=== PATIENT | female | born 2005 | race Hispanic/Latino ===

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

== ENCOUNTER 2024-07-19 18:13 | Emergency (ER) | payer SELFPAY ==
--- NOTE | 2024-07-19 18:14 | ED.URI ---
HPI - URI/Sore Throat General Chief Complaint: Upper Respiratory Infection Stated Complaint: Sore throat Time Seen by Provider: 07/19/24 18:23 Source: patient, RN notes reviewed and old records reviewed Mode of arrival: ambulatory Limitations: no limitations History of Present Illness HPI Narrative: 18-year-old female presents to the [facility] with 2 day history a sore throat. States she thinks she fever. Did take DayQuil and ibuprofen when she felt feverish. No treatment today. Onset (ago): day(s) (2) Related Data Allergies Allergy/AdvReac Type Severity Reaction Status Date / Time No Known Allergies Allergy Verified 05/25/23 12:42 Review of Systems Review of Systems: All systems reviewed & are unremarkable except as noted in HPI and below Constitutional: Constitutional: Reports no additional constitutional complaints ENT: Reports as per HPI and Reports sore throat Cardiovascular: Cardiovascular: Reports no additional cardiovascular complaints, Denies chest pain and Denies dyspnea Respiratory: Respiratory: Reports no additional respiratory complaints, Denies chest congestion, Denies cough and Denies dyspnea Musculoskeletal: Musculoskeletal: Reports no additional musculoskeletal complaints Integumentary/Breasts: Skin/Breast: Reports system reviewed and no additional complaints, except as docu PMFSH Past Medical History Medical History Patient denies medical problems Surgical History Surgical History No significant past surgical history Social History Social History Smoking status: Never smoker Comments At the time of my signature, I reviewed and agree with the nursing past medical, surgical, social, and family history. There is no relevant family history pertinent to the patient complaint. Exam Const: General: cooperative, healthy appearing, comfortable, no acute distress, well developed, alert and well nourished Nutritional Appearance: well nourished Orientation/consciousness: patient oriented x3 Limitations: no limitations HENMT: Head: normal to inspection Ears: hearing grossly normal bilaterally, external ears normal, TM's normal bilaterally, EAC's normal, mastoids normal and no periauricular adenopathy Face/Nose/Sinus: Normal external nose present and Normal nasal mucous membranes and turbinates present Mouth: Yes Normal oral and palatal mucosa present, Yes lip normal, Yes tongue normal and Yes moist mucous membranes Throat: uvula midline, abnormal tonsil bilateral erythema and hypertrophy 2+; no exudates and no uvular edema Eyes: General: appearance normal, both eyes and all related structures Alignment and Position: alignment normal Neck: Neck: normal visual inspection, full ROM, no meningeal signs and lymphadenopathy (Bilateral submandibular) Chest: Chest palpation & inspection: normal inspection of the chest Resp: Effort & Inspection: normal respiratory effort and able to speak in complete sentences Auscultation: clear to auscultation bilaterally, no crackles, no rales, no rhonchi and no wheezes Cardio: Rate: regular rate Skin: General skin exam: normal color and no rashes or lesions noted Neuro: General: patient oriented x3, gait normal, moves all extremities and no meningeal signs Cognition (Neuro): normal cognition Speech: normal speech Gait exam (Neuro): Normal gait present Extrem: General: normal to inspection, full ROM, capillary refill normal and normal gait Psych: Appearance: grossly normal and well kempt Mental Status: mental status grossly normal Speech and movement: Normal speech and movement present and Clear speech present Affect: normal affect Attitude: cooperative Course Course Level of Care: Express Care Visit Vital Signs Vital signs: Vital Signs Temperature 99.7 F H 07/19/24 18:22 Pulse Rate 106 H 07/19/24 18:22 Respiratory Rate 18 07/19/24 18:22 Blood Pressure 132/90 07/19/24 18:22 Pulse Oximetry 100 07/19/24 18:22 Oxygen Delivery Room Air 07/19/24 18:22 Temperature 99.7 F H 07/19/24 18:22 Pulse Rate 106 H 07/19/24 18:22 Respiratory Rate 18 07/19/24 18:22 Blood Pressure 132/90 07/19/24 18:22 Pulse Oximetry 100 07/19/24 18:22 Oxygen Delivery Room Air 07/19/24 18:22 Reviewed MDM - URI/Sore Throat MDM Narrative Medical decision making narrative: Patient presents with 2 day history of sore throat. Patient is nontoxic, vitals are stable except pulse mildly elevated, low-grade temp. Patient is positive for strep. Will treat with amoxicillin. Patient is appropriate for outpatient treatment and follow-up Discharge instructions reviewed with patient, as well as provided in writing per nursing staff. The instructions also include specific and strict return/GO TO THE ER as well as f/u information. All questions have been answered, and the patient deny any further questions with discharge and discharge plan. Some parts of this dictation were generated by voice recognition software and may contain typographical and/or grammatical inaccuracies. Differential Diagnosis Differential diagnosis: Likely upper respiratory infection, otitis media, sinusitis, viral infection, bronchitis, influenza and pharyngitis Lab Data Labs: Lab Results 07/19/24 Range/Units 18:25 POC Grp A Strep Screen Positive (Negative) Reviewed Critical Care Time Critical Care Time Critical Care Time: No Discharge Plan Discharge Clinical Impression: Strep pharyngitis Patient Disposition: Home, Self-Care Condition: Stable Instructions: Antibiotic Form, Strep Throat (DC) Additional Instructions: After 24-48 hours on antibiotics, Throw the toothbrush away, start using a new one. Please be sure to wash bed linens especially pillow cases. Repeat once you finish the antibiotics. Do not share drinks. Take Motrin alternating with Tylenol for pain and fever alternating every 4 hours. Increase fluids, avoid caffeine. Give plenty of water, juice, Gatorade, Pedialyte, ice pops in Jell-O Follow up with Primary provider if not getting better this week For new or worsening symptoms go directly to the emergency room Patient Language: Wolof Prescriptions: New amoxicillin 500 mg tablet 500 mg PO Q12H Qty: 20 0RF No Action ketoconazole 2 % cream 1 applic topical DAILY 14 Days Qty: 30 0RF Follow-up/Referrals: PHYSICIAN,STOPPING BUILDER [Primary Care Provider] - Stand Alone Forms: Work/School Release IP Time of Disposition: 18:36
[2024-07-19 18:22] VITALS: BP 132/90; PULSE 106; RESP 18; TEMP 37.6; O2SAT 100
[2024-07-19 18:37] LABS: EDSTREPNEGPOS1 Positive (Negative)
== END 2024-07-19 18:44 | disposition home or self-care (01) ==
PROVIDERS: Emergency Provider Nurse Practitioner
DX: J02.0 Streptococcal pharyngitis (principal)
CPT/HCPCS: 87880; 99213; G0463

== ENCOUNTER 2024-09-19 08:36 | Emergency (ER) | payer MEDICAID, SELFPAY ==
--- NOTE | ~2024-09-19 | US_ITS ---
EXAMINATION: US OB <=14 wk fetus w TV DATE: 09/19/2024 11:36 INDICATION: Bleeding and lower abdominal pain during early . TECHNIQUE: Real-time pelvic ultrasound utilizing both a transvaginal and transabdominal probe was pe rformed. The interpreting radiologist was not present for the study. COMPARISON: None. FINDINGS: The uterus measures 11.3 x 6.1 x 7.6 cm. There is an intrauterine gestational sac. A yolk sac and fe eileen pole are identified. The crown rump length measures 6-7 mm, which correlates with an estimated ge stational age of 6 weeks and 4 days. There is no evident heart motion by M-mode Doppler which i s highly suspicious for demise with the crown-rump length is negligible below the 7 mm threshol d for definitive determination of demise. There is a large subchorionic hematoma the portion wh ich demonstrates a dependently layering hematocrit level in which exerts mass effect with flattening of the adjacent margin of the gestational sac. The right ovary measures 2.9 x 1.7 x 1.7 cm. 1.9 cm hypoechoic likely corpus luteum cyst in the right ovary. The left ovary measures 3.1 x 1.8 x 3.2 cm. There are a few subcentimeter anechoic follicles at both ovaries. Vascular flow identified at both ovaries on color Doppler. There is no free fluid in the pelvis. IMPRESSION: 1. Intrauterine gestational sac with single 6-7 mm pole without discernible heart motion which is highly suspicious for failure. Dr. England discussed these findings with Dr. Cobos at 12:15 PM. 2. Gestational age by ultrasound of 6 weeks 4 day(s) +/- 4 day(s) which would correspond with an ult rasound estimated date of delivery (NIEVES) of 05/11/2025. 3. Large subchorionic hematoma. Reviewed, dictated and finalized at location A. IMPRESSION: 1. Intrauterine gestational sac with single 6-7 mm pole without discernib le heart motion which is highly suspicious for failure. Dr. England discussed these findings with Dr. Cobos at 12:15 PM. 2. Gestational age by ultrasound of 6 weeks 4 day(s) +/- 4 day(s) which would correspond with an ultrasound estimated date of delivery (NIEVES) of 05/11/2025. 3. Large subchorionic hematoma.
[2024-09-19 08:42] VITALS: BP 115/55; PULSE 80; RESP 18; TEMP 36.4; O2SAT 100
[2024-09-19 08:59] VITALS: BP 132/94
[2024-09-19 09:01] VITALS: BP 106/92
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
[2024-09-19 09:16] VITALS: BP 125/94
[2024-09-19 09:29] LABS: BEDSIDEPREGUCG Positive (Negative)
[2024-09-19 09:38] VITALS: BP 125/84; PULSE 80; RESP 15; O2SAT 99
[2024-09-19 09:40] LABS: Basophils Absolute Auto 0.1 K/mm3 (0.0-0.1); Basophils Percent Auto 0.6 % (0.2-1.2); Eosinophils Absolute Auto 0.1 K/mm3 (0-0.3); Eosinophils Percent Auto 1.6 % (0-4.4); Hematocrit 38.5 % (37.0-47.0); Hemoglobin 12.9 g/dL (12.0-15.0); Immature Granulocyte Absolute 0.03 K/mm3 (0.00-0.031); Immature Granulocyte Percent A 0.4 % (0-0.5); Lymphocytes Absolute Auto 1.85 K/mm3 (0.9-3.2); Mean Corpuscular HGB Conc 33.5 g/dl (32-36); Mean Corpuscular Hemoglobin 27.6 pg (26-34); Mean Corpuscular Volume 82.3 fl (80-100); Mean Platelet Volume 9.2 fl (7.4-10.4); Monocytes Absolute Auto 0.6 K/mm3 (0.1-0.6); Monocytes Percent Auto 7.6 % (2.6-8.5); Neutrophils Absolute Auto 5.4 K/mm3 (1.3-6.7); Neutrophils Percent Auto 66.8 % (45.5-73.1); Platelet Count Result 300 k/mm3 (150-375); Red Blood Count 4.68 M/mm3 (4.2-5.4); Red Cell Distribution Width 14.6 % (11.5-14.5)
[2024-09-19 09:51] LABS: INR 0.9; Prothrombin Time 12.8 Seconds (11.1-14.7)
[2024-09-19 09:53] LABS: Partial Thromboplastin Time 27.7 Seconds (22.3-36.8)
--- OUTSIDE RECORDS SUMMARY | 2024-09-19 10:02 | XMS_ITS | Clinical Summary ---
Author Organization [facility] Address [address] [address] Care Team Providers Care Front Line Leader Name Role Phone CarylAngela contreras Rashida NEGRO-LEAD MANUFACTURING TECHNICIAN Primary Care Provider + Source Comments [facility],non-owned Affiliates and Associated Physician Practices is amultiple site organization consisting of ambulatory clinics and hospital sitesin [place], [place], [place] and [place]. This disclosure is being madepursuant to the Care Everywhere program and may not contain all information available regarding this patient. Last updated 18.[facility] Allergies No known active allergies Medications Be [...] 1:42 AM 12/22/2017 3:42 PM Care Teams Front Line Leader Relationship Specialty Start Date End Date Angela Leung, MARKY-LEAD MANUFACTURING TECHNICIAN [facility] [address] PCP - General Nurse Practitioner 12/21/17
[2024-09-19 10:13] LABS: Alanine Aminotransferase 15 U/L (6-35); Albumin Level 3.7 g/dL (3.7-5.6); Alkaline Phosphatase 46 U/L (45-116); Anion Gap 8 mmol/L (4-12); Aspartate Amino Transferase 21 U/L (14-36); Bilirubin,Total 0.7 mg/dL (0.2-1.3); Blood Urea Nitrogen 12 mg/dL (8-21); Calcium 8.7 mg/dL (8.9-10.7); Carbon Dioxide 20 mmol/L (22-30); Chloride 107 mmol/L (98-107); Estimated CRCL calculation 75 ml/min; Estimated Glomerular Filt Rate > 60; Glucose 89 mg/dL (65-110); Potassium 3.8 mmol/L (3.4-5.0); Sodium 135 mmol/L (134-143)
--- NOTE | 2024-09-19 10:17 | ED_ITS ---
HPI - General Chief complaint: Vaginal Bleeding Stated complaint: vag bleeding, + preg testx3 Time Seen by Provider: 09/19/24 09:01 Source: patient Mode of arrival: ambulatory Limitations: no limitations History of Present Illness HPI Narrative: Patient is a 18-year-old female who presents the ED with report of vaginal bleeding. Patient is currently . Last normal menstrual cycle around 08/17. Has had 3 positive tests at home. . Reports having light vaginal bleeding over the last 2-3 days. States bleeding became heavier today. Reports intermittent lower abdominal cramping. Reports nausea, vomiting. Denies difficulty urinating, dysuria. Denies fevers. Has an appointment with [facility] on 10/17. Related Data Allergies Allergy/AdvReac Type Severity Reaction Status Date / Time No Known Allergies Allergy Verified 09/19/24 08:38 Review of Systems 2 Review of Systems: All systems reviewed & are unremarkable except as noted in HPI. All systems reviewed & are unremarkable except as noted in HPI and below PMFSH Past Medical History Medical History Patient denies medical problems Surgical History Surgical History No significant past surgical history Social History Social History Smoking status: Never smoker Exam 2 Narrative: GENERAL: Well appearing, thin, non-toxic, in no acute distress. HEAD: Normocephalic, atraumatic. RESPIRATORY: Airway patent, respirations nonlabored. Clear to auscultation bilaterally, no rales, rhonchi, wheezing. CARDIOVASCULAR: Regular rate and rhythm without murmurs, rubs, or gallops. ABDOMINAL: Soft, mild diffuse tenderness in lower abdomen, no rebound, no focal tenderness, nondistended. Normoactive BS. PELVIC: Normal external genitalia. Mild amount of dark red vaginal blood in vaginal vault. No clots. Cervix appears unremarkable. No evidence of hemorrhage or pooling of fluid. MUSCULOSKELETAL: Moves all extremities. No gross deformities. SKIN: Warm, dry, normal color. NEURO: A&O X3. Speech clear PSYCHIATRIC: Appropriate mood and affect. Normal interaction. Course Vital Signs Vital signs: Vital Signs Temperature 97.6 F 09/19/24 08:42 Pulse Rate 80 09/19/24 08:42 Respiratory Rate 18 09/19/24 08:42 Blood Pressure 115/55 L 09/19/24 08:42 Pulse Oximetry 100 09/19/24 08:42 Oxygen Delivery Room Air 09/19/24 08:42 Temperature 97.6 F 09/19/24 08:42 Pulse Rate 80 09/19/24 09:38 Respiratory Rate 15 09/19/24 09:38 Blood Pressure 125/84 09/19/24 09:38 Pulse Oximetry 99 09/19/24 09:38 Oxygen Delivery Room Air 09/19/24 08:42 MDM - OB/Uterine Contractions MDM Narrative Medical decision making narrative: Patient presented to ED with vaginal bleeding, early . Vital signs are stable upon arrival. Patient is in no acute distress. Cbc is unremarkable. Stable H&H. Beta hCG 44K. Patient's blood type is A positive, no indication for RhoGAM. Pelvic ultrasound was obtained and unfortunately showing likely failure/ demise. Gestational sac present, but no heart activity. Six weeks 4 days. Large subchorionic. Pelvic exam without evidence of hemorrhage. Discussed case with Dr. Barahona OBGYMary on-call for [facility], advised to have repeat hormone level on Tuesday, follow-up in office. Call office make appointment. Discussed these recommendations with patient. She is in agreement with plan. All questions answered. Patient given strict return precautions should bleeding worsen or continue. Discharged in stable condition. Medical Records Attestation: I reviewed the patient's medical records. Lab Data Attestation: I reviewed the patient's lab results. 09/19/24 09:29 09/19/24 09:29 Labs: Lab Results 09/19/24 09/19/24 09/19/24 Range/Units 09:27 09:29 11:27 WBC 8.0 (4.5-10.0) K/mm3 RBC 4.68 (4.2-5.4) M/mm3 Hgb 12.9 (12.0-15.0) g/dL Hct 38.5 (37.0-47.0) % MCV 82.3 (80-100) fl MCH 27.6 (26-34) pg MCHC 33.5 (32-36) g/dl RDW 14.6 H (11.5-14.5) % Plt Count 300 (150-375) k/mm3 MPV 9.2 (7.4-10.4) fl Immature Gran % (Auto) 0.4 (0-0.5) % Neut % (Auto) 66.8 (45.5-73.1) % Lymph % (Auto) 23.0 (18.3-44.2) % [place] % (Auto) 7.6 (2.6-8.5) % Eos % (Auto) 1.6 (0-4.4) % Baso % (Auto) 0.6 (0.2-1.2) % Lymph # (Auto) 1.85 (0.9-3.2) K/mm3 [place] # (Auto) 0.6 (0.1-0.6) K/mm3 Eos # (Auto) 0.1 (0-0.3) K/mm3 Baso # (Auto) 0.1 (0.0-0.1) K/mm3 Abs Immat Gran (auto) 0.03 (0.00-0.031) K/mm3 Absolute Neuts (auto) 5.4 (1.3-6.7) K/mm3 Absolute Nucleated RBC 0.000 (0.0-0.012) K/mm3 Nucleated RBC % 0.0 (0.0-0.2) % PT 12.8 (11.1-14.7) Seconds INR 0.9 APTT 27.7 (22.3-36.8) Seconds Sodium 135 (134-143) mmol/L Potassium 3.8 (3.4-5.0) mmol/L Chloride 107 (98-107) mmol/L Carbon Dioxide 20 L (22-30) mmol/L Anion Gap 8 (4-12) mmol/L BUN 12 D (8-21) mg/dL Creatinine 0.82 (0.7-1.0) mg/dL Estim Creat Clear Calc 75 ml/min Estimated GFR > 60 (59 - ) Glucose 89 (65-110) mg/dL Calcium 8.7 L (8.9-10.7) mg/dL Total Bilirubin 0.7 (0.2-1.3) mg/dL AST 21 (14-36) U/L ALT 15 (6-35) U/L Alkaline Phosphatase 46 (45-116) U/L Total Protein 7.0 (6.3-8.6) g/dL Albumin 3.7 (3.7-5.6) g/dL Beta HCG, Quant 52985.00 mIU/ML Urine Color Yellow (Yellow) Urine Appearance Clear (Clear) Urine pH 6.5 (5.0-9.0) Ur Specific [place] 1.010 (1.001-1.035) Urine Protein 2+ H (Negative) mg/dL Urine Glucose (UA) Negative (Negative) mg/dL Urine Ketones Negative (Negative) mg/dL Ur Blood (Man) 3+ H (Negative) Urine Nitrate Negative (Negative) Urine Bilirubin Negative (Negative) Urine Urobilinogen 0.2 (<2.0) mg/dL Leukocyte Esterase Rfl Negative (Negative) JANNA/UL Urine RBC >100 H (0-2) /hpf Urine WBC 0-5 (0-3) /hpf Ur Squamous Epith Cells None seen (Few) /hpf Urine Bacteria None seen /hpf Urine Casts 0-2 POC Urine HCG, Qual Positive (Negative) Blood Type A Positive Antibody Screen Negative Screen Not Reportable Baby's Blood Type Not Reportable Baby's MATTHEW Not Reportable Doses of RhIg Required 0 Imaging Data Attestation: I personally reviewed and interpreted this imaging study as follows: Radiologist's impression: ITS Impressions Obstetrics Ultrasound 09/19/24 11:59 IMPRESSION: 1. Intrauterine gestational sac with single 6-7 mm pole without discernible heart motion which is highly suspicious for failure. Dr. England discussed these findings with Dr. Cobos at 12:15 PM. 2. Gestational age by ultrasound of 6 weeks 4 day(s) +/- 4 day(s) which would correspond with an ultrasound estimated date of delivery (NIEVES) of 05/11/2025. 3. Large subchorionic hematoma. Discharge Plan Discharge Clinical Impression: demise, 6 weeks gestation of Subchorionic hematoma in first trimester Qualifiers: Fetus number: single or unspecified fetus Qualified Code(s): O41.8X10 - Other specified disorders of amniotic fluid and membranes, first trimester, not applicable or unspecified Patient Disposition: Home, Self-Care Condition: Stable Instructions: Antibiotic Form, Miscarriage (ED) Additional Instructions: Your ultrasound here today was unfortunately consistent with failure. You will need to follow-up with OB in the office on Tuesday. Call the office today to make appointment for Tuesday afternoon with Dr. Barahona. You will need to have repeat laboratory testing on Tuesday morning prior to your OB appointment. Take lab order sheet with you to the outpatient lab. Continue to monitor bleeding. Return to the ED if you experience worsening or severe bleeding, severe pain, unable to keep down food or drink, fevers, feeling dizzy or lightheaded, or any other symptoms of concern. Patient Language: Cameroonian Prescriptions: No Action ketoconazole 2 % cream 1 applic topical DAILY 14 Days Qty: 30 0RF amoxicillin 500 mg tablet 500 mg PO Q12H Qty: 20 0RF amoxicillin 500 mg tablet 500 mg PO Q12H Qty: 20 0RF Other Ambulatory Orders: Beta HCG Quantitative (Routine) Timeframe: [id number] Location: Determined by Patient Ordered By: Rosey Collier Follow-up/Referrals: Suman Barahona MD [Physician] - (OBGYN) UNKNOWN,DOCTOR [Primary Care Provider] - Time of Disposition: 12:44
[2024-09-19 11:37] LABS: Add Urine Microscopic? YES; Appearance Urine Clear (Clear); Bacteria Urine None Seen /hpf; Bilirubin Urine Negative (Negative); Blood Urine 3+ (Negative); Color Urine Yellow (Yellow); Glucose Urine UA Negative (Negative); Ketones Urine Negative (Negative); Leukocyte Esterase Ur Negative LEU/UL (Negative); Nitrate Urine Negative (Negative); Non Pathogenic Casts 0-2; Protein Urine 2+ mg/dL (Negative); RBC Urine >100 /hpf (0-2); Squamous Epithelial Cell Urine None Seen /hpf (Few); Urobilinogen Urine 0.2 mg/dL (<2.0); WBC Urine 0-5 /hpf (0-3); pH Urine 6.5 (5.0-9.0)
== END 2024-09-19 13:10 | disposition home or self-care (01) ==
PROVIDERS: Emergency Provider Physician Assistant
DX: O02.1 Missed abortion (principal)
CPT/HCPCS: 36415; 76801; 76817; 80053; 81001; 81025; 84702; 85025; 85461; 85610; 85730; 86850; 86900; 86901; 99284

== ENCOUNTER 2024-09-21 17:09 | Outpatient (CLI) | payer MEDICAID, SELFPAY ==
--- OUTSIDE RECORDS SUMMARY | 2024-09-21 17:13 | XMS_ITS | Clinical Summary ---
Author Organization [facility] Address [address] [place] [address] Care Team Providers Care Circuitry Negative Inspector Name Role Phone CarylAngela contreras Rashida NEGRO-ANALYTICAL CLERK Primary Care Provider + Source Comments [facility] [employer],non-owned Affiliates and Associated Physician Practices is amultiple site organization consisting of ambulatory clinics and hospital sitesin [place], [place], [place] and [place]. This disclosure is being madepursuant to the Care Everywhere program and may not contain all information available regarding this patient. Last updated 18.[facility] [employer] Allergies No known active allergies Medications Be [...] 1:42 AM 12/22/2017 3:42 PM Care Teams Circuitry Negative Inspector Relationship Specialty Start Date End Date Angela Leung, MARKY-ANALYTICAL CLERK [facility] [address] PCP - General Nurse Practitioner 12/21/17
== END 2024-09-21 17:10 | disposition home or self-care (01) ==
LOC: ANHLAB 17:11
PROVIDERS: Visit Provider Physician Assistant
DX: O02.1 Missed abortion (principal)
CPT/HCPCS: 36415; 84702

== ENCOUNTER 2024-09-21 21:49 | Emergency (ER) | payer MEDICAID, SELFPAY ==
--- OUTSIDE RECORDS SUMMARY | 2024-09-21 21:51 | XMS_ITS | Clinical Summary ---
Author Organization [facility] Address [address] [place] [address] Care Team Providers Care Sustainability Communicator Name Role Phone CarylAngela contreras Rashida NEGRO-ADJUNCT PROFESSOR OF LAW Primary Care Provider + Source Comments [facility] [employer]non-owned Affiliates and Associated Physician Practices is amultiple site organization consisting of ambulatory clinics and hospital sitesin [place], [place] and [place]. This disclosure is being madepursuant to the Care Everywhere program and may not contain all information available regarding this patient. Last updated 18.[facility] [employer] Allergies No known active allergies Medications Be [...] 1:42 AM 12/22/2017 3:42 PM Care Teams Sustainability Communicator Relationship Specialty Start Date End Date Angela Leung, MARKY-ADJUNCT PROFESSOR OF LAW [facility] [address] PCP - General Nurse Practitioner 12/21/17
[2024-09-21 22:09] VITALS: BP 137/83; PULSE 88; RESP 15; TEMP 36.6; O2SAT 98
--- OUTSIDE RECORDS SUMMARY | 2024-09-21 23:17 | XMS_ITS | Clinical Summary ---
Author Organization [facility] Address [address] [place] [address] Care Team Providers Care Tie Sawyer Name Role Phone CarylAngela contreras Rashida NEGRO-ALARM SECURITY OR SURVEILLANCE MONITOR Primary Care Provider + Source Comments [facility] [employer],non-owned Affiliates and Associated Physician Practices is amultiple site organization consisting of ambulatory clinics and hospital sitesin [place], [place], [place] and [place]. This disclosure is being madepursuant to the Care Everywhere program and may not contain all information available regarding this patient. Last updated 18.[facility] [employer] Allergies No known active allergies Medications Be [...] 1:42 AM 12/22/2017 3:42 PM Care Teams Tie Sawyer Relationship Specialty Start Date End Date Angela Leung, MARKY-ALARM SECURITY OR SURVEILLANCE MONITOR [facility] [address] PCP - General Nurse Practitioner 12/21/17
--- NOTE | 2024-09-21 23:25 | ED_ITS ---
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 She reports she was here approximately 2 days ago and was told she was having a miscarriage. Last normal menstrual cycle was around 2/14, . Pt reports she has been passing clots and endorses heavy vaginal bleeding. She reports intermittent lower abdominal cramping. Pt endorses some nausea and vomiting. She denies urinary symptoms, dysuria, recent fevers. Pt denies any relevant medical history. Related Data Allergies Allergy/AdvReac Type Severity Reaction Status Date / Time No Known Allergies Allergy Verified 09/19/24 08:38 Review of Systems 2 Review of Systems: All systems reviewed & are unremarkable except as noted in HPI and below PMFSH Past Medical History Medical History Patient denies medical problems Surgical History Surgical History No significant past surgical history Social History Social History Smoking status: Never smoker Exam 2 Narrative: GENERAL: Well appearing, well-nourished, non-toxic, in no acute distress. HEAD: Normocephalic, atraumatic. NECK: Supple. No adenopathy, no masses. RESPIRATORY: Airway patent, respirations nonlabored. Clear to auscultation bilaterally, no rales, rhonchi, wheezing. CARDIOVASCULAR: Regular rate and rhythm without murmurs, rubs, or gallops. Peripheral pulses 2+ and equal bilaterally. ABDOMINAL: Soft, nontender, nondistended, no hepatosplenomegaly. Normoactive BS. MUSCULOSKELETAL: Moves all extremities. Strength/ROM intact without gross deformities. SKIN: Warm, dry, normal color. No rashes. NEURO: A&O X3. Speech clear. Cranial nerves II-XII intact. No ataxic movements. PSYCHIATRIC: Appropriate mood and affect. Normal interaction. : Pt's vaginal exam showed a substantial amount of pooling, dark red blood in the vaginal canal accompanied by multiple clots (largest measuring approximately half dollar-sized). Course Vital Signs Vital signs: Vital Signs Temperature 36.6 C 09/21/24 22:09 Pulse Rate 88 09/21/24 22:09 Respiratory Rate 15 09/21/24 22:09 Blood Pressure 137/83 09/21/24 22:09 Pulse Oximetry 98 09/21/24 22:09 Oxygen Delivery Room Air 09/21/24 22:09 Temperature 36.6 C 09/21/24 22:09 Pulse Rate 88 09/22/24 01:42 Respiratory Rate 14 09/22/24 01:42 Blood Pressure 124/91 H 09/22/24 01:42 Pulse Oximetry 100 09/22/24 01:42 Oxygen Delivery Room Air 09/21/24 22:09 MDM - OB/Uterine Contractions MDM Narrative Medical decision making narrative: Patient is a 18-year-old female who presents to the ER with complaints increased vaginal bleeding. She reports she was here approximately 2 days ago and was told she was having a miscarriage. Last normal menstrual cycle was around 08/17, . Pt reports she has been passing clots and endorses heavy vaginal bleeding. She reports intermittent lower abdominal cramping. Pt endorses some nausea and vomiting. She denies urinary symptoms, dysuria, recent fevers. Pt denies any relevant medical history. Labs Ordered: CBC, CMP, UA, hCG Imaging Ordered: None necessary Medications Ordered: Cytotec, Toradol IV, 1 L normal saline IV bolus, morphine 2 mg IV Diagnosis: Spontaneous , heavy vaginal bleeding Consults: 0115-spoke with Dr. Barahona (OBGYN) who advised patient be given Cytotec 1000 mg intravaginal. He advised patient could be sent home following administration. Patient Education/Shared MDM: Pt's vaginal exam showed a substantial amount of dark red blood in the vaginal canal accompanied by multiple clots (largest measuring approximately half dollar-sized). Results shared with patient. She endorses pain improvement following medication administration. Patient strongly advised to maintain hydration status upon discharge and follow-up with her PCP as soon as possible. She will be discharged home with a prescription for Ibuprofen and [place]. Strict return precautions provided. Patient verbalized understanding is in agreement with plan. Vital signs stable at time of discharge. All questions answered. Differential Diagnosis Differential diagnosis: Likely other (spontaneous , heavy vaginal bleeding, UTI, excessive vaginal blood loss) Lab Data Attestation: I reviewed the patient's lab results. 09/21/24 23:59 09/21/24 23:59 Labs: Lab Results 09/21/24 Range/Units 23:59 WBC 11.3 H (4.5-10.0) K/mm3 RBC 4.01 L (4.2-5.4) M/mm3 Hgb 11.0 L (12.0-15.0) g/dL Hct 33.3 L (37.0-47.0) % MCV 83.0 (80-100) fl MCH 27.4 (26-34) pg MCHC 33.0 (32-36) g/dl RDW 14.4 (11.5-14.5) % Plt Count 296 (150-375) k/mm3 MPV 9.6 (7.4-10.4) fl Immature Gran % (Auto) 0.4 (0-0.5) % Neut % (Auto) 77.9 H (45.5-73.1) % Lymph % (Auto) 11.5 L (18.3-44.2) % [place] % (Auto) 9.0 H (2.6-8.5) % Eos % (Auto) 0.6 (0-4.4) % Baso % (Auto) 0.6 (0.2-1.2) % Lymph # (Auto) 1.29 (0.9-3.2) K/mm3 [place] # (Auto) 1.0 H (0.1-0.6) K/mm3 Eos # (Auto) 0.1 (0-0.3) K/mm3 Baso # (Auto) 0.1 (0.0-0.1) K/mm3 Abs Immat Gran (auto) 0.05 H (0.00-0.031) K/mm3 Absolute Neuts (auto) 8.8 H (1.3-6.7) K/mm3 Absolute Nucleated RBC 0.000 (0.0-0.012) K/mm3 Nucleated RBC % 0.0 (0.0-0.2) % Sodium 136 (134-143) mmol/L Potassium 3.5 (3.4-5.0) mmol/L Chloride 107 (98-107) mmol/L Carbon Dioxide 21 L (22-30) mmol/L Anion Gap 8 (4-12) mmol/L BUN 15 (8-21) mg/dL Creatinine 0.87 (0.7-1.0) mg/dL Estim Creat Clear Calc 72 ml/min Estimated GFR > 60 (59 - ) Glucose 107 (65-110) mg/dL Calcium 8.7 L (8.9-10.7) mg/dL Total Bilirubin 0.4 (0.2-1.3) mg/dL AST 21 (14-36) U/L ALT 13 (6-35) U/L Alkaline Phosphatase 51 (45-116) U/L Total Protein 7.0 (6.3-8.6) g/dL Albumin 3.7 (3.7-5.6) g/dL Beta HCG, Quant 6415.00 mIU/ML Urine Color Yellow (Yellow) Urine Appearance Clear (Clear) Urine pH 5.5 (5.0-9.0) Ur Specific [place] 1.018 (1.001-1.035) Urine Protein 3+ H (Negative) mg/dL Urine Glucose (UA) Negative (Negative) mg/dL Urine Ketones Trace H (Negative) mg/dL Ur Blood (Man) 3+ H (Negative) Urine Nitrate Negative (Negative) Urine Bilirubin Negative (Negative) Urine Urobilinogen 0.2 (<2.0) mg/dL Leukocyte Esterase Rfl Negative (Negative) JANNA/UL Urine RBC >100 H (0-2) /hpf Urine WBC 0-5 (0-3) /hpf Ur Squamous Epith Cells None seen (Few) /hpf Urine Bacteria None seen /hpf Urine Casts 3-5 Discharge Plan Discharge Clinical Impression: Spontaneous at 8 to 28 weeks gestation, Abnormal vaginal bleeding Patient Disposition: Home, Self-Care Condition: Stable Instructions: Antibiotic Form, Miscarriage (ED) Additional Instructions: Please return to the ER with any worsening symptoms. Follow-up with OBGYN as soon as possible. Take all medications as prescribed. Patient Language: Danish Prescriptions: New ibuprofen 800 mg tablet 800 mg PO TID PRN (Reason: pain) Qty: 20 0RF hydrocodone-acetaminophen 5-325 mg tablet 1 tablet PO Q6H PRN (Reason: pain) Qty: 5 0RF No Action ketoconazole 2 % cream 1 applic topical DAILY 14 Days Qty: 30 0RF amoxicillin 500 mg tablet 500 mg PO Q12H Qty: 20 0RF amoxicillin 500 mg tablet 500 mg PO Q12H Qty: 20 0RF Follow-up/Referrals: UNKNOWN,DOCTOR [Primary Care Provider] - Stand Alone Forms: Work/School Release IP Time of Disposition: 02:08
[2024-09-22 00:14] LABS: Basophils Absolute Auto 0.1 K/mm3 (0.0-0.1); Basophils Percent Auto 0.6 % (0.2-1.2); Eosinophils Absolute Auto 0.1 K/mm3 (0-0.3); Eosinophils Percent Auto 0.6 % (0-4.4); Hematocrit 33.3 % (37.0-47.0); Immature Granulocyte Absolute 0.05 K/mm3 (0.00-0.031); Immature Granulocyte Percent A 0.4 % (0-0.5); Lymphocytes Absolute Auto 1.29 K/mm3 (0.9-3.2); Lymphocytes Percent Auto 11.5 % (18.3-44.2); Mean Corpuscular Hemoglobin 27.4 pg (26-34); Mean Platelet Volume 9.6 fl (7.4-10.4); Neutrophils Absolute Auto 8.8 K/mm3 (1.3-6.7); Neutrophils Percent Auto 77.9 % (45.5-73.1); Platelet Count Result 296 k/mm3 (150-375); Red Blood Count 4.01 M/mm3 (4.2-5.4); Red Cell Distribution Width 14.4 % (11.5-14.5); White Blood Count 11.3 K/mm3 (4.5-10.0)
[2024-09-22 00:18] LABS: Alanine Aminotransferase 13 U/L (6-35); Albumin Level 3.7 g/dL (3.7-5.6); Alkaline Phosphatase 51 U/L (45-116); Anion Gap 8 mmol/L (4-12); Aspartate Amino Transferase 21 U/L (14-36); Bilirubin,Total 0.4 mg/dL (0.2-1.3); Blood Urea Nitrogen 15 mg/dL (8-21); Calcium 8.7 mg/dL (8.9-10.7); Carbon Dioxide 21 mmol/L (22-30); Chloride 107 mmol/L (98-107); Estimated CRCL calculation 72 ml/min; Estimated Glomerular Filt Rate > 60; Glucose 107 mg/dL (65-110); Potassium 3.5 mmol/L (3.4-5.0); Sodium 136 mmol/L (134-143)
[2024-09-22 00:19] LABS: Add Urine Microscopic? YES; Appearance Urine Clear (Clear); Bacteria Urine None Seen /hpf; Bilirubin Urine Negative (Negative); Blood Urine 3+ (Negative); Color Urine Yellow (Yellow); Glucose Urine UA Negative (Negative); Ketones Urine Trace mg/dL (Negative); Leukocyte Esterase Ur Negative LEU/UL (Negative); Nitrate Urine Negative (Negative); Protein Urine 3+ mg/dL (Negative); RBC Urine >100 /hpf (0-2); Specific Grav Ur 1.018 (1.001-1.035); Squamous Epithelial Cell Urine None Seen /hpf (Few); Urobilinogen Urine 0.2 mg/dL (<2.0); WBC Urine 0-5 /hpf (0-3); pH Urine 5.5 (5.0-9.0)
[2024-09-22] MEDS: SODIUM CHLORIDE 0.9% IV 1,000 ML 999 ML IV CONT (00:35)
[2024-09-22] MEDS: MORPHINE SULFATE (*CRX) 2 MG/ML INJ IV PUSH (00:36)
[2024-09-22] MEDS: KETOROLAC 15 MG/ML VIAL (*BKC) IV PUSH (00:36)
[2024-09-22 01:42] VITALS: BP 124/91; PULSE 88; RESP 14; O2SAT 100
[2024-09-22] MEDS: miSOPROStol 200 MCG TABLET 1000 MCG VAGINAL (01:42)
[2024-09-22] MEDS: HYDROcodone/acetaminophen (*CRX) 5-325 MG TABLET 1 TAB PO (02:22)
== END 2024-09-22 02:28 | disposition home or self-care (01) ==
PROVIDERS: Emergency Provider Registered Nurse
DX: O03.9 Complete or unspecified spontaneous abortion without complication (principal)
CPT/HCPCS: 36415; 80053; 81001; 84702; 85025; 96361; 96374; 96375; 99284; A9270; J1885; J2270; J7030

== ENCOUNTER 2024-10-02 02:24 | Day surgery (SDC) | payer MEDICAID, SELFPAY ==
[2024-09-28 13:26] VITALS: BMI 20.9
--- NOTE | 2024-09-28 13:27 | PC.NURSE ---
Report to the Outpatient Waiting Room, entrance under the green pavilion located off [facility], at time _1030_ on date _[id number]_. Planned Procedure Time: _1230_.? Time changes happen often and if your time is changed the preop area will call you the afternoon before. - You and your visitor will be asked to self-screen and do not enter if you have any COVID symptoms. Please call surgeon if you need to reschedule. - A mask is optional within the hospital at this time. Patients may have clear liquids (water, carbonated beverages, clear teas, apple juice) until 3 hours prior to surgery with a maximum of 20 ounces. - No food from midnight until time of surgery and no smoking, or chewing tobacco (or any form of nicotine). No chewing gum, candy or mints. Take only the following medications with a SIP of water on the morning of surgery: __Hydrocodone if needed.____ DO NOT STOP ANY OF YOUR OTHER PRESCRIPTION MEDICATIONS PRIOR TO SURGERY EXCEPT THE FOLLOWING Hold all vitamins and supplements for 3 days per anesthesiologist. Medications to discontinue per physician ___Please check with Dr Barahona if need to hold Ibuprofen.____ Date to take last dose Please no make-up, nail jamaican, hairspray, perfume, deodorant, or body powder the day of surgery.? No jewelry (including any body piercings) or valuables the day of surgery, leave them at home.? Please take a shower or bath the night before, or the morning of, surgery with an antibacterial soap.? Wear comfortable, loose fitting clothing.? - Jewelry must be removed prior to entering the operating room.? Rings and piercings that are not removed may be cut off. - The hospital will not accept responsibility for valuables.? - Please leave all valuables, including medications, at home the day of surgery. If you are going home after surgery, a licensed six horse hitch driver must drive you home.? - NO public transportation without another adult if you receive anesthesia. - We recommend that an adult stay with you for 24 hours following discharge. - We also recommend that you do not drive, make important decision, drink alcoholic beverages, or take any drugs that were not prescribed by your health care provider for at least 24 hours after your discharge time. Follow any additional instructions given to you from your surgeon. Telephone instructions given to __Whitney__and asked if any additional questions and then verbalized understanding. Patient advised to call surgeon office or pre surgery nurse liaison [phone] if any additional questions.
--- OUTSIDE RECORDS SUMMARY | 2024-10-02 02:29 | XMS_ITS | Clinical Summary ---
Author Organization [facility] Address [address] [place] [address] Care Team Providers Care Paint Factory Worker Name Role Phone XochitlErmiasmara Field APRN-BUSINESS SYSTEM CONSULTANT Primary Care Provider + Source Comments [facility] [employer],non-owned Affiliates and Associated Physician Practices is amultiple site organization consisting of ambulatory clinics and hospital sitesin [place], [place], [place] and [place]. This disclosure is being madepursuant to the Care Everywhere program and may not contain all information available regarding this patient. Last updated 18.[facility] [employer] Allergies No known active allergies Medications Be [...] 1:42 AM 12/22/2017 3:42 PM Care Teams Paint Factory Worker Relationship Specialty Start Date End Date Angela Leung, MARKY-BUSINESS SYSTEM CONSULTANT [facility] [address] PCP - General Nurse Practitioner 12/21/17
--- OUTSIDE RECORDS SUMMARY | 2024-10-02 02:29 | XMS_ITS | Data Portability ---
Author Organization [facility] Address [address] [place] [place] [address] Assessment No assessment recorded. Plan of Treatment Reminders Order Date Submit Date Provider Last Modified By Organization Details Last Modified Time Details Appointments SURG Suction D&C 2024 12:30P M Rufino PALMA MD Not available Not available Not available U/S OB SNEAK PEAK 2024 10:00A M ULTRASOUND Not available Not available Not available OB SCREEN 2024 10:45A M FANNY HINOJOSA MD Not available Not available Not available Lab pregnan cy test, urine 2024 025 [facility], [address], [place], [address], 09/28/2024 11:06:25 pregnan cy test, urine 2024 025 [facility], [address], [place], [address], 09/21/2024 17:16:33 Referral None recorde d. Procedures None recorde d. Surgeries suction dilatio n & curetta ge (SURG) 2024 025 [facility] [facility], [facility] [facility] [address], [place], [address], 10/01/2024 15:23:04 Imaging US, obstetr ic, transva ginal 2024 025 [email or web address] [facility], [address], [place], [address], 09/28/2024 21:06:13 US, obstetr ic, transva ginal 2024 025 [email or web address], [address], [address], [place], [address], 09/22/2024 12:14:32 Medication Orders None recorde d. Patient TargetsNo targets recorded. Patient InstructionsNo instructions recorded. Reason for Referral None Reported. Results Created Date Observation Date Name Description Value Unit Range Abnormal Flag Note LastModifiedBy Organization Detail LastModifiedTime 09/22/1909/21/2024 pregn racquel test, urine HCG positi ve Not Available [facility] [address], [place], [address], 09/21/2024 17:16:19 09/29/19 25 09/28/2024 pregn racquel test, urine HCG positi ve Not Available [facility] [address], [place], [address], 09/28/2024 11:06:01 09/22/19 25 09/21/2024 US, obste tric, 1st trime ster No observ ation record ed. [email or web address] [facility], [place], [address], 09/23/2024 22:13:13 09/22/19 25 09/21/2024 US, obste tric, trans vagin al No observ ation record ed. [facility] [address], [place], [address], 09/21/2024 18:17:30 09/29/19 25 09/28/2024 US, obste tric, trans vagin al No observ ation record ed. [facility] [address], [place], [address], 09/28/2024 17:20:08 09/29/1909/28/2024 US, obste tric, trans vagin al No observ ation record ed. [email or web address], [place], [address], 09/30/2024 22:59:27 Result Notes None recorded. Procedures Surgical History None recorded. Imaging Results Imaging Date Name Status LastModified by Organization Details LastModified Time 09/21/2024 US, obstetric, 1st trimester completed [email or web address], [place], [address], 09/23/2024 22:13:13 09/21/2024 US, obstetric, transvaginal completed [place] [address], [place], [address], 09/21/2024 18:17:30 09/28/2024 US, obstetric, transvaginal completed [facility] [address], [place], [address], 09/28/2024 17:20:08 09/28/2024 US, obstetric, transvaginal completed [email or web address], [place], [address], 09/30/2024 22:59:27 Procedure Notes None recorded. Medical Equipment None Reported. Allergies No known drug allergies Medications Name Sig Start Date Stop Date Status Note LastModified by Organization Details LastModified Time ibuprofen 800 mg tablet TAKE 1 TABLET BY MOUTH THREE TIMES DAILY NEEDED FOR PAIN active Not Available Not Available No t Available hydrocodone 5 mg-acetaminop hen 325 mg tablet TAKE 1 TABLET BY MOUTH EVERY 6 HOURS NEEDED active Not Available Not Available No t Available Vitals Date Recorded Body height Body mass index (BMI) Percentile per age and sex Body mass index (BMI) Body weight Systolic blood pressure Diastolic blood pressure Provider Name and Address Organization Details Last Updated DateTime 157.48 cm 40 % 20.9 kg/m2 46351.5 3 g 127 mm[Hg] 86 mm[Hg] Tenisha [place] - [facility] 15:11:13 Date Recorded Body height Body mass index (BMI) Percentile per age and sex Body mass index (BMI) Body weight Systolic blood pressure Diastolic blood pressure Provider Name and Address Organization Details Last Updated DateTime 5 157.48 cm 35 % 20.5 kg/m2 85831.3 5 g 122 mm[Hg] 84 mm[Hg] Tenisha [place] [facility] 5 10:16:32 Social History Question Answer Notes LastModified by Organizat ion Details LastModified Time Tobacco Smoking Status Never Smoker Tenisha [place] [facility] 09/21/2024 15:12:48 What Is Your Level Of Alcohol Consumption? None Information not available 09/21/2024 Are You Blind Or Do You Have Difficulty Seeing? No Information n ot available 09/21/2024 What Is Your Level Of Caffeine Consumption? Occasional Information not available 09/21/2024 In The 14 Days Before Symptom Onset, Have You Had Close Contact With A Laboratory-confirm ed COVID-19 While That Case Was Ill? No Information n ot available 09/21/2024 In The 14 Days Before Symptom Onset, Have You Had Close Contact With A Person Who Is Under Investigation For COVID-19 While That Person Was Ill? No Information not available 09/21/2024 Have You Been To An Area Known To Be High Risk For COVID-19? No Information not available 09/21/2024 Are You Currently Employed? Yes Information not available 09/21/2024 Are You Deaf Or Do You Have Serious Difficulty Hearing? No Information not available 09/21/2024 What Is The Highest Grade Or Level Of School You Have Completed Or The Highest Degree You Have Received? [id number] Information not available 09/21/2024 Are There Any Guns Present In Your Home? No Information not available 09/21/2024 Do You Use Your Seat Belt Or Car Seat Routinely? Yes Information not available 09/21/2024 Are You Sexually Active? Yes Information not available 09/21/2024 Do You Have Smoke And Carbon Monoxide Detectors In Your Home? Yes Information not available 09/21/2024 Do You Feel Stressed (tense, Restless, Nervous, Or Anxious, Or Unable To Sleep At Night)? [id number] Information not available 09/21/2024 Do You Use Any Illicit Or Recreational Drugs? No Information not available 09/21/2024 Sex: Unknown Functional Status Question Answer Note LastModified by Organizat ion Details LastModified Time Do you have difficulty walking or climbing stairs? No Information not available 09/21/2024 Are you able to walk? YESWOREST Information not available 09/21/2024 Are you able to care for yourself? Yes Information not available 09/21/2024 Do you have difficulty dressing or bathing? No Information not available 09/21/2024 Mental Status None recorded. Family History Relationship Description Onset Age of this Age Resolved Age Notes LastModified by Organization Details LastModified Time Father No current problems or disability Not available 09/21 15:12:39 Mother No current problems or disability Not available 09/21 15:12:39 Medical History Condition Response Allergies (Food, seasonal, environmental ) N Other N Drug/Latex Allergies/Reactions N Breast Cancer N Blood Transfusion N Dermatologic Disorders N Lung Disease N Defects or Inherited Disease N Breast Problem N Gestational Diabetes N Hematologic disorders N Anesthesia Complications N History of STI N Deep Vein Thrombosis N Polycystic ovary syndrome N Anxiety Disorder N Autoimmune disease N Arthritis N Infertility N Polyps N Acid Reflux (GERD) N History of abnormal pap N Cancer N Stroke N Varicosities N Neurologic/Epilepsy N Endometriosis N High Cholesterol N Fibromyalgia N Headaches N Kidney Disease N Heart Problems N Thyroid Problems N Kidney or Bladder Problems N GI Problems N Eating Disorder N Anemia N Art (IVF or FET) N Psychiatric Illness N Ovarian Cancer N Diabetes N Pulmonary (TB, Asthma) N Hepatitis/Liver Disease N No Past Medical History Y Eczema N Urinary Tract Infection N Abuse/Domestic Violence N Asthma N Trauma/Violence N Depression/ depression N Heart Disease N Pre-Eclampsia N Hypertension N Osteoporosis N Thrombophilias N Gynecological History Statement/Question Response Abnormal Pap N Flow Moderate Date of LMP 08/16/2024 Was last menstrual period normal Y STIs/STDs N HPV Vaccine N Duration of Flow (days) 7 Current Control Method Are cycles usually normal Y Frequency of Cycle (Q days) 28 Sexually Active? Y Menses Monthly Y Sexual Problems? N LMP Definite Obstetrics History GPAL:G 1 P 0 0 1 0 Type Value Spontaneous 1 Total 1 Past Encounters Encounter ID Performer Location Encounter Start Date Encounter Closed Date Diagnosis/Indication Diagnosis SNOMED-CT Code Diagnosis ICD10 Code Diagnosis Note [id number] Suman Palma MD [facility] [address] [address] 09/21/2024 14:42:35 09/25/2024 09:27:05 Missed miscarriage [id number] O02.1 . this patient is a 18-year-ol d female with threatened miscarriag e. She was in the emergency department recently. The findings were inconclusi ve but suspicious for missed miscarriag e. She has had intermitte nt heavy bleeding. Today we performed an examinatio n. There was minimal bleeding. Ultrasound was performed. It was suggestive of missed miscarriag e. She is going to complete her serial HCGs today. I spent over 30 minutes on the patient's care in total. Including ultrasound interpreta tion, laboratory interpreta tion, discussion of miscarriag e. Talked about treatment of miscarriag e. Developed a plan going forward to complete her evaluation in 2 share results. Patient will follow-up next week. [id number] [facility] [address] [address] 09/21/2024 16:43:37 09/25/2024 09:30:51 Threatened miscarriage [id number] O20.0 Z3A.01 [id number] [facility] [address] [address] 09/28/2024 10:05:31 09/28/2024 12:01:46 Missed miscarriage [id number] O02.1 This patient is a 18 year old female with retained products conception . We have agreed to perform suction D&C. She understand s risks, benefits, and alternativ es. She has completed the informed consent process and is ready to proceed. We spent over 30 minutes face-to-fa ce today. She had an in office ultrasound today. We interprete d those results. I showed her images. [id number] [facility] [address] [address] 09/28/2024 10:45:33 09/28/2024 11:13:11 Missed miscarriage [id number] O02.1 Z3A.01 . this patient is a 18-year-ol d female with threatened miscarriag e. She was in the emergency department recently. The findings were inconclusi ve but suspicious for missed miscarriag e. She has had intermitte nt heavy bleeding. Today we performed an examinatio n. There was minimal bleeding. Ultrasound was performed. It was suggestive of missed miscarriag e. She is going to complete her serial HCGs today. I spent over 30 minutes on the patient's care in total. Including ultrasound interpreta tion, laboratory interpreta tion, discussion of miscarriag e. Talked about treatment of miscarriag e. Developed a plan going forward to complete her evaluation in 2 share results. Patient will follow-up next week. Health Concerns Section Related Observation LastModified by Organization Detai ls LastModified Time None Recorded Concern Status LastModified by Organization Details LastModified Time None Recorded Advance Directives Directive None Recorded Payers Encounter Date Sequence Insurance Name Policy Number Policy Rios Covered Member ID Rios Member ID Guarantor Name 09/21/2024 1 [place] [facility] [place] [facility] [employer] Whitney Pantoja [id number] Whitney Pantoja 09/21/2024 1 [place] [facility] [place] [facility] [employer] Whitney Pantoja [id number] Whitney Pantoja 09/28/2024 1 [place] [facility] [place] [facility] [employer] Whitney Pantoja [id number] Whitney Pantoja 09/28/2024 1 [place] [facility] [place] [facility] Whitney Pantoja [id number] Whitney Pantoja Notes Date Note Type Note Provider Name and Address Organization Details Recorded Time 09/21/2024 text/html . this patient i s a 18-year-old female with threatened miscarriage. She was in the emergency department recently. The findings were inconclusive but suspicious for missed miscarriage. She has had intermittent heavy bleeding. Today we performed an examination. There was minimal bleeding. Ultrasound was performed. It was suggestive of missed miscarriage. She is going to complete her serial HCGs today. I spent over 30 minutes on the patient's care in total. Including ultrasound interpretation, laboratory interpretation, discussion of miscarriage. Talked about treatment of miscarriage. Developed a plan going forward to complete her evaluation in 2 share results. Patient will follow-up next week. Suman Palma MD [address], [place], [address], [facility] 09/21/2024 17:59:58 09/28/2024 text/html patient is a 18-year-old female with retained products conception. We agreed to perform suction D&C. The patient understands the procedure. The procedure was described to the patient in great detail. the patient also understands the risks. The risks were also explained in detail. She understands that injuries May occur during surgery. She understands these injuries can result in hospitalization, more surgery, and severe illness. She understands there is risk of hemorrhage and infection. Suman Palma MD [address], [place], [address], [facility] 09/28/2024 11:57:48 OBGyn Episode Ob Episode Information Episode Created Date Number of Fetuses Patient Bloodtype Patient rh Status Prepregnancy Weight lbs Domestic Partner Domestic Partner Phone Father Name Site Foreman Status 09/29/19 25 1 CLOSED Fetus Data First Name Last Name Admitted to NICU Weight (g) Sex Living Outcome Pediatric Complications Fetus ID Race Codes Race Delivery Type , Spontane ous [id number] Zhang Calculation Initial Zhang Date Initial Exam Date Initial Exam Provider Initial Ultrasound Date Last Menstrual Period Date Ultra Sound Weeks Gestation 0 Eighteen To Twenty Week Zhang Update Ultra Sound Date Fundal Height At Umbil Quickening Date Ultra Sound Latest Weeks Gestation Final Zhang Confirmed By Final Zhang Confirmed Date Final Zhang Date Ultra Sound Latest Days Gestation 0 0 Menstrual History Last Menstrual Date Menses Monthly On Bcp Conception Prior Menses Frequency Hcg Plus Date Menarche Onset Age Delivery Information Delivery Date Delivery Type Labor Anesthesia Weeks Gestation Incision Type Labor Labor Length Hrs Delivered By Post Complications Tubal Sterilization Discharge Date Comments 5 Discharge Information Feeding Method Contraceptive Method Maternal HG B and HCT Levels
[2024-10-02 10:50] VITALS: BP 109/61; PULSE 68; RESP 14; TEMP 36.7; O2SAT 100
[2024-10-02] MEDS: ACETAMINOPHEN 500 MG TABLET 1000 MG PO (10:50)
[2024-10-02] MEDS: LACTATED RINGERS 1,000 ML 30 ML IV CONT (10:50)
--- NOTE | 2024-10-02 11:50 | WPDHPUPDATE1 ---
History and Physical Update Update Date/Time: 10/02/24 11:50 History and Physical has been reviewed, including an updated exam of the patient. There are NO changes in the patient's condition. Risks, benefits, and alternatives have been discussed and questions answered. Patient agrees to proceed with procedure.
--- NOTE | 2024-10-02 11:51 | PM.IMHP ---
H&P: HPI History of Present Illness Date/Time: 10/02/24 11:51 Chief Complaint: incomplete miscarriage, vaginal bleeding Narrative: This patient is a 18-year-old female who has a incomplete miscarriage. We have agreed to perform suction D&C. She understands risks, benefits, and alternatives. She has completed informed consent process and is ready to proceed. The patient understands the details of the procedure. The procedure has been explained in detail. She understands the risks. She understands that injuries may occur that result in hospitalization, more surgery, and severe illness. She understands risk of hemorrhage and infection. She denies any chest pain or shortness of breath. She denies any nausea, vomiting, fever, chills. Review of Systems Review of Systems: All systems reviewed & are unremarkable except as noted in HPI and below Constitutional: Constitutional: Denies chills, Denies fatigue, Denies fever(s) and Denies weakness Eyes: Eyes: Denies blurry vision, Denies change in vision, Denies loss of peripheral vision, Denies loss of vision, Denies other visual disturbances and Denies eye pain ENT: Denies vertigo, Denies dizziness, Denies hearing loss, Denies mouth pain, Denies nasal obstruction, Denies neck mass and Denies neck pain Cardiovascular: Cardiovascular: Denies chest pain, Denies diaphoresis, Denies syncope, Denies leg edema and Denies dyspnea Respiratory: Respiratory: Denies chest congestion, Denies cough, Denies hemoptysis, Denies dyspnea and Denies wheezing Gastrointestinal: Gastrointestinal: Denies abdominal pain, Denies constipation, Denies diarrhea, Denies nausea and Denies vomiting Genitourinary: Genitourinary: Denies hematuria, Denies change in libido, Denies nocturia, Denies genital lesions, Denies flank pain and Denies urinary urgency Musculoskeletal: Musculoskeletal: Denies abnormal gait, Denies back pain, Denies myalgias, Denies arthralgias, Denies joint swelling, Denies muscle weakness and Denies neck pain Integumentary/Breasts: Skin/Breast: Denies swelling, Denies breast pain, Denies breast mass, Denies dry skin, Denies nipple discharge, Denies unusual bruising and Denies jaundice Neurologic: Denies Neuro-related abnormal movements, Denies Abnormal speech present, Denies abnormal gait, Denies behavioral changes, Denies confusion, Denies vertigo, Denies dizziness, Denies syncope, Denies loss of vision, Denies memory loss, Denies convulsions and Denies weakness Psychiatric: Psychiatric: Denies abnormal sleep pattern, Denies behavioral changes, Denies change in libido, Denies confusion, Denies depression, Denies anhedonia and Denies memory loss Endocrine: Endocrine: Reports no additional endocrine complaints, Denies change in libido and Denies fatigue Hematologic/Lymphatic: Hematologic/Lymphatic: Reports no additional hematologic/lymphatic complaints Allergic/Immunologic: Allergic/Immunologic: Reports no additional allergic/immunologic complaints and Denies wheezing PMFSH Past Medical History Medical History Patient denies medical problems Surgical History Surgical History No significant past surgical history Social History Social History Smoking status: Never smoker Spiritual care concerns: No Meds Home Medications and Allergies Home Medications ?Medication ?Instructions ?Recorded ?Confirmed ?Type hydrocodone 5 mg-acetaminophen 325 1 tablet PO Q6H PRN pain #5 tabs 09/22/24 09/28/24 Rx mg tablet ibuprofen 800 mg tablet 800 mg PO TID PRN pain #20 tabs 09/22/24 09/28/24 Rx Allergies Allergy/AdvReac Type Severity Reaction Status Date / Time No Known Allergies Allergy Verified 10/02/24 11:46 Vital Signs Vital Signs - 24 hr 10/02/24 10:50 Temperature 98.1 F Pulse Rate 68 Respiratory Rate 14 Blood Pressure 109/61 Pulse Oximetry 100 Oxygen Delivery Room Air Exam Const: General: cooperative, healthy appearing, comfortable and no acute distress Orientation/consciousness: oriented to person, oriented to place and oriented to time HENMT: Head: normal to inspection Ears: external ears normal Face/Nose/Sinus: Normal external nose present and normal facial exam Face and sinus: normal facial exam Eyes: General: appearance normal, both eyes and all related structures Neck: Neck: normal visual inspection, trachea midline and supple Resp: Auscultation: clear to auscultation bilaterally, no crackles, no rales, no rhonchi and no wheezes Cardio: Rate: regular rate Rhythm: regular rhythm Heart sounds: no click, no murmurs and no rubs GI: GI Palp: No abdominal tenderness, No Soft to palpation, No Tenderness to palpation present (GI) and No Palpable mass present Auscultation: normal bowel sounds Skin: General skin exam: normal color and no rashes or lesions noted Neuro: General: oriented to person, oriented to place and oriented to time Extrem: General: normal to inspection, no joint enlargement, no clubbing, cyanosis or edema, no pedal edema and no calf tenderness Psych: Appearance: grossly normal Mental Status: mental status grossly normal Speech and movement: Normal speech and movement present Assessment and Plan Assessment and plan (1) Incomplete : Code(s): O03.4 - Incomplete spontaneous without complication Status: Acute Assessment and Plan: This patient is a 18-year-old female who has a incomplete miscarriage. We have agreed to perform suction D&C. She understands risks, benefits, and alternatives. She has completed informed consent process and is ready to proceed.
[2024-10-02] MEDS: LIDOCAINE 1% LOCAL INJ 10 ML VIAL INFILTRATE (12:20)
--- NOTE | 2024-10-02 12:22 | P.OP_ITS ---
Procedure Note - Detailed Date of Procedure 10/02/24 Pre-op Diagnosis Incomplete miscarriage Post-op Diagnosis Same Procedure Performed Suction D&C Surgeon Suman Barahona MD Anesthesia MAC Indications missed Findings normal-appearing vulva vagina and cervix to. Small amount of products conception within the uterus. 8 cm uterus Description of Procedure the patient was taken the operating room. She was prepped and draped in dorsal lithotomy position after induction of mac anesthesia. A speculum was placed in the vagina. Cervix grasped with tenaculum. The cervix was dilated to about 1 cm Using Jimenez dilators. A 8. Barbadian curved curette was used to perform suction D&C. The curette was introduced and vacuum was applied. The curette was removed over all surfaces of the intrauterine cavity multiple times. This was done until all the surfaces were clear and had the familiar grainy texture they can be felt through the instrument. A sharp curette was then used to curettage all the surfaces. The suction cup was then reapplied 1 more time to remove any debris. The instruments were removed. The speculum and tenaculum were removed. The patient tolerated the procedure well. She was taken recovery room stable condition. Estimated Blood Loss 30 Drains No Packing No Pathology Yes Complications No immediate complications Condition Stable Disposition PACU
[2024-10-02 12:24] VITALS: BP 106/60; PULSE 63; RESP 12; O2SAT 100
[2024-10-02 12:50] VITALS: BP 95/58; PULSE 54; O2SAT 97
[2024-10-02 13:20] VITALS: BP 106/67; PULSE 49
[2024-10-02 13:50] VITALS: BP 134/79; PULSE 62
[2024-10-02 14:20] VITALS: BP 124/84; PULSE 64
--- NOTE | 2024-10-02 14:37 | SUR.PHASEII ---
1250: Patient is A+ blood type.
== END 2024-10-02 14:25 | disposition home or self-care (01) ==
PROVIDERS: Visit Provider Obstetrics & Gynecology
PROC: (CPT 59812; principal; 2024-10-02 12:30)
DX: O03.4 Incomplete spontaneous abortion without complication (principal); Z79.891 Long term (current) use of opiate analgesic; Z79.1 Long term (current) use of non-steroidal anti-inflammatories (NSAID)
CPT/HCPCS: 59812; 88305; A9270; J1885; J2003; J2250; J2405; J2704; J3010; J7120